=== PATIENT | male | born 1975 | race Caucasian/White ===

== ENCOUNTER → 2016-12-31 | Outpatient (CLI) | payer OTHER, MEDICAID ==
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
--- NOTE | 2016-12-31 19:49 | DX ---
Lumbar Spine, Two Views 1431 hours Indication: Back pain. Comparison: CT of the abdomen and pelvis dated August 07, 2014. Technique: Upright AP and lateral views. Findings: Large body habitus attenuates the x-ray beam. Impression: Asymmetric tilt of the pelvis, left iliac crest superior to the right iliac crest suggest s underlying limb length discrepancy. The vertebral body heights are well preserved. No compression d eformity. Disk heights are well preserved. No discernible pars defect. Impression: 1. No evidence of acute fracture. 2. No significant degenerative disk or facet arthropathy. 3. Query limb length discrepancy with the left leg longer than the right resulting in pelvic tilt.
== END ==
LOC: CIMAGING 14:20
PROVIDERS: ATTEND Family Medicine
DX: M25.572 Pain in left ankle and joints of left foot (principal); M54.9 Dorsalgia, unspecified
CPT/HCPCS: 72100-PO; 73610-PO

== ENCOUNTER 2017-01-13 15:27 | Emergency (ER) | payer OTHER, MEDICAID ==
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
[2017-01-13 15:38] VITALS: RESP 18; TEMP 98.2
[2017-01-13] MEDS ORDERED: oxyCODONE IR 5 MG TAB PO ONE (16:40)
[2017-01-13] MEDS ORDERED: oxyCODONE IR 5 MG TAB ONE (16:41)
[2017-01-13 16:44] VITALS: BP 115/73; PULSE 86; O2SAT 95
== END 2017-01-13 16:48 | disposition home or self-care (01) ==
LOC: EDUNIT#
DX: S09.90XA Unspecified injury of head, initial encounter (principal); J45.909 Unspecified asthma, uncomplicated; E11.9 Type 2 diabetes mellitus without complications; I10 Essential (primary) hypertension; Y04.0XXA Assault by unarmed brawl or fight, initial encounter

== ENCOUNTER 2017-01-14 15:38 | Inpatient (IN) | payer OTHER, MEDICAID ==
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
[2017-01-14] MEDS ORDERED: NS 1,000 ML IV ONE (16:08)
[2017-01-14] MEDS ORDERED: OLANZapine DISINTEGR 5 MG TAB PO ONE (16:08)
[2017-01-14 16:13] LABS: % IMMATURE GRANULYOCYTES 0.4 % (0.0-1.1); ABSOLUTE IMMATURE GRANULOCYTES 0.03 10^3/uL (0.00-0.10); ADD DIFF? NO; ADD MORPH? NO; ADD SCAN? NO; ATYPICAL LYMPHOCYTE FLAG 10 (0-99); FRAGMENT RBC FLAG 0 (0-99); HEMATOCRIT 46.6 % (40.0-51.0); HEMOGLOBIN 16.6 g/dL (13.7-17.5); LEFT SHIFT FLG 0 (0-99); LIPEMIA HEMOLYSIS FLAG 90 (0-99); MEAN CELL HEMOGLOBIN 35.3 pg (27.9-34.1); MEAN CELL HEMOGLOBIN CONCENTR. 35.6 g/dL (32.4-36.7); MEAN CELL VOLUME 99.1 fL (81.5-99.8); MEAN PLATELET VOLUME 11.2 fL (8.7-11.7); PLATELET CLUMPS FLAG 0 (0-99); PLATELET COUNT 209 10^3/uL (150-400); RED CELL DISTRIBUTION WIDTH 13.4 % (11.5-15.2)
[2017-01-14 16:20] LABS: ANION GAP 21 mEq/L (8-16); CALCIUM 10.2 mg/dL (8.5-10.4); CARBON DIOXIDE 19 mEq/l (22-31); CHLORIDE 109 mEq/L (97-110); CREATININE 1.2 mg/dL (0.7-1.3); ETHANOL SERUM 280 mg/dL (0-10); GLOMERULAR FILTRATION RATE > 60; GLUCOSE 150 mg/dL (70-100); POTASSIUM 3.8 mEq/L (3.5-5.2); SODIUM 149 mEq/L (134-144)
[2017-01-14] MEDS ORDERED: OLANZapine DISINTEGR 5 MG TAB ONE (16:41)
[2017-01-14] MEDS ORDERED: OLANZapine DISINTEGR 10 MG TAB PO ONE (17:41)
[2017-01-14] MEDS ORDERED: LORazepam 2 MG/ML INJ IVP ONE (17:41)
[2017-01-14 22:13] LABS: ETHANOL SERUM 146 mg/dL (0-10)
[2017-01-15] MEDS ORDERED: chlordiazePOXIDE 25 MG CAP PO ONE (03:00)
[2017-01-15] MEDS ORDERED: LORazepam 0.5 MG TAB PO PRN (10:26)
[2017-01-15] MEDS ORDERED: MAGNESIUM HYDROXIDE 30 ML UDCUP PO PRN ×2 (10:26→10:40)
[2017-01-15] MEDS ORDERED: NICOTINE POLACRILEX 2 MG GUM B PRN (10:26)
[2017-01-15] MEDS ORDERED: OLANZapine DISINTEGR 10 MG TAB PO PRN (10:26)
[2017-01-15] MEDS ORDERED: MAG HYDROX/AL HYDROX/SIMETH 30 ML UDCUP PO PRN ×2 (10:26→10:40)
[2017-01-15] MEDS ORDERED: OXYCODONE HCL 10 MG PO PRN (10:29)
[2017-01-15] MEDS ORDERED: ONDANSETRON DISINTEGRATING 4 MG TAB PO PRN (10:29)
[2017-01-15] MEDS ORDERED: ALBUTEROL 60 PUFFS/8 GM MDI IH PRN (10:29)
[2017-01-15] MEDS ORDERED: levETIRAcetam 500 MG TAB PO SCH (10:30)
[2017-01-15] MEDS ORDERED: TESTOSTERONE IM 100 MG/ML SYRINGE IM SCH (10:30)
[2017-01-15] MEDS ORDERED: THIAMINE HCL 100 MG TAB PO ONE (10:40)
[2017-01-15] MEDS ORDERED: chlordiazePOXIDE 25 MG CAP PO PRN (10:40)
[2017-01-15] MEDS ORDERED: IBUPROFEN 200 MG TAB PO PRN (10:40)
[2017-01-15] MEDS ORDERED: PROMETHAZINE HCL 25 MG TAB PO PRN (10:40)
[2017-01-15] MEDS ORDERED: PROMETHAZINE HCL 25 MG SUPPR PR PRN (10:40)
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
[2017-01-15] MEDS: oxyCODONE IR 5 MG TAB PO PRN ×2 (12:45→18:39)
[2017-01-15] MEDS: LEVOTHYROXINE 75 MCG TAB PO SCH (12:47)
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
[2017-01-15] MEDS: BECLOMETHASONE QVAR 80 MDI IH SCH ×2 (15:38→17:56)
[2017-01-15] MEDS: levETIRAcetam 250 MG TAB PO SCH (20:47)
[2017-01-15] MEDS: levETIRAcetam 500 MG TAB PO SCH (20:47)
[2017-01-15] MEDS: OLANZapine DISINTEGR 10 MG TAB PO SCH (20:47)
[2017-01-15] MEDS ORDERED: NON-FORMULARY NEW DRUG (Olanzapine [Zyprexa] 20 MG) PO SCH (21:00)
[2017-01-15] MEDS ORDERED: OLANZAPINE 30 MG PO SCH (21:00)
[2017-01-16] MEDS: LEVOTHYROXINE 75 MCG TAB PO SCH (05:51)
[2017-01-16] MEDS: BECLOMETHASONE QVAR 80 MDI IH SCH ×2 (06:00→17:56)
[2017-01-16] MEDS: THIAMINE HCL 100 MG TAB PO SCH (07:30)
[2017-01-16] MEDS: oxyCODONE IR 5 MG TAB PO PRN ×2 (07:30→17:00)
[2017-01-16] MEDS: levETIRAcetam 500 MG TAB PO SCH ×2 (07:30→20:08)
[2017-01-16] MEDS: levETIRAcetam 250 MG TAB PO SCH ×2 (07:30→20:08)
[2017-01-16] MEDS: MULTIVITAMINS 1 EACH TAB PO SCH (07:31)
[2017-01-16] MEDS: FOLIC ACID 1 MG TAB PO SCH (07:31)
--- NOTE | 2017-01-16 11:03 | SOAPPROG ---
SOAP Progress Note Assessment/Plan: Assessment: Pt is a 41 y/o male with a hx of Schizoaffective D/O and alcoholism who made Homicidal statements at the [facility]. Pt was put on an M1 for S/H I and also was put on CIWA's for alcohol withdrawal. Plan:con't Zyprexa 30mg QHS and 5mg prn D/C CIWA'S and order Ativan prn on an M1 but agrees to sign in vol D/C SP and allow pt to shave 01/16/17 11:27 Subjective: Pt is attending groups-still reporting vague HI "My head had pressure this morning. I need my Ativan." Objective: Vital Signs Temp Pulse Resp BP Pulse Ox 36.7 C 66 14 117/75 93 01/16/17 06:10 01/16/17 06:10 01/16/17 06:10 01/16/17 06:10 01/16/17 06:10 Pt is A+O x4 mood-depressed affect-constricted + chronic A/V H +HI vague this am but agrees to be safe and not hurt self or others denies S/I thoughts-logical no delusions speech-wnl slept 7.5 hours good appetite memory-fair conc-fair no ROSSY I/J-fair - Time Spent With Patient Time Spent With Patient: 25' - Pending Discharge Pending Discharge Within 24 Hours: No Pending Discharge Within 48 Hours: No ICD10 Worksheet Patient Problems: Problems Problem Status Onset Alcohol intoxication Acute Auditory hallucinations Acute Schizophrenia Acute Cellulitis Acute
[2017-01-16] MEDS: IBUPROFEN 200 MG TAB PO PRN ×2 (11:04→19:24)
[2017-01-16] MEDS: LORazepam 1 MG TAB PO PRN ×2 (11:37→19:24)
[2017-01-16] MEDS: OLANZapine DISINTEGR 5 MG TAB PO PRN ×2 (11:37→17:00)
[2017-01-16] MEDS: OLANZapine DISINTEGR 10 MG TAB PO SCH (20:08)
[2017-01-17] MEDS: LEVOTHYROXINE 75 MCG TAB PO SCH (06:11)
[2017-01-17] MEDS: BECLOMETHASONE QVAR 80 MDI IH SCH (06:12)
[2017-01-17 06:20] VITALS: BP 90/55; PULSE 65; RESP 16; TEMP 97.6; O2SAT 90
[2017-01-17] MEDS ORDERED: TESTOSTERONE IM 100 MG/ML SYRINGE IM SCH (09:00)
[2017-01-17] MEDS: MULTIVITAMINS 1 EACH TAB PO SCH (11:09)
[2017-01-17] MEDS: THIAMINE HCL 100 MG TAB PO SCH (11:09)
[2017-01-17] MEDS: levETIRAcetam 500 MG TAB PO SCH (11:09)
[2017-01-17] MEDS: FOLIC ACID 1 MG TAB PO SCH (11:09)
[2017-01-17] MEDS: levETIRAcetam 250 MG TAB PO SCH (11:09)
--- NOTE | 2017-01-17 11:15 | SOAPPROG ---
SOAP Progress Note Assessment/Plan: Assessment: Pt is a 41 y/o male with a hx of Schizoaffective D/O and alcoholism who made Homicidal statements at the [facility]. Pt was put on an M1 for S/H I and also was put on CIWA's for alcohol withdrawal. Plan:con't Zyprexa 30mg QHS and 5mg prn con't Ativan prn-pt states it is helping pt will sign in vol D/C SP and allow pt to shave tp get testosterone shot 01/17/17 01/17/17 11:11 Subjective: "I'm not feeling well. I'm getting my testosterone shot today." Objective: Vital Signs Temp Pulse Resp BP Pulse Ox 36.4 C 65 16 90/55 L 90 L 01/17/17 06:19 01/17/17 06:19 01/17/17 06:19 01/17/17 06:19 01/17/17 06:19 Pt is A+O x4 mood-depressed affect-appr thoughts-logical chronic A/V H no current S/H I sleep and appetite-improving speech-monotone no delusions no ROSSY memory-fair I/J-fair - Time Spent With Patient Time Spent With Patient: 20' - Pending Discharge Pending Discharge Within 24 Hours: No Pending Discharge Within 48 Hours: No ICD10 Worksheet Patient Problems: Problems Problem Status Onset Alcohol intoxication Acute Auditory hallucinations Acute Schizophrenia Acute Cellulitis Acute
[2017-01-17] MEDS: oxyCODONE IR 5 MG TAB PO PRN (12:27)
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
== END 2017-01-17 16:40 | disposition home or self-care (01) | DRG 885 ==
LOC: EDUNIT# → EDBD → BBEH 01-15 09:50
PROVIDERS: ADMIT Psychiatry & Neurology Psychiatry; ATTEND Psychiatry & Neurology Psychiatry
DX: F20.89 Other schizophrenia (principal); F10.120 Alcohol abuse with intoxication, uncomplicated; I10 Essential (primary) hypertension; E03.9 Hypothyroidism, unspecified; Z91.14 Patient's other noncompliance with medication regimen
CPT/HCPCS: 80305; 96374; G0480; J1071

== ENCOUNTER 2017-01-18 21:56 | Emergency (ER) | payer OTHER, MEDICAID ==
[2017-01-18 22:03] VITALS: RESP 20; TEMP 98.1
--- NOTE | 2017-01-18 22:32 | EDPHY ---
H & P Stated Complaint: ETOH Time Seen by Provider: 01/18/17 21:57 HPI/ROS: CHIEF COMPLAINT: Suspected alcohol intoxication HISTORY OF PRESENT ILLNESS: 41-year-old male guarding by ambulance police [facility] hold after he was found intoxicated, with group other individuals would also been drinking. There are no reports of trauma or fall. No reports of assault. No injury. Per the M1 report there were initial bystander statements of suicidality however the patient denied this on scene and he denies suicidality when I interview him. Denies homicidality. REVIEW OF SYSTEMS: A ten point review of systems was performed and is negative with the exception of the items mentioned in the HPI PAST MEDICAL & SURGICAL HISTORY: alcoholism SOCIAL HISTORY: Positive for witnessed alcohol use PHYSICAL EXAM (Prior to examination, patient consented to physical exam, hands were washed and my usual and customary physical exam procedures followed) 1) GENERAL: Well-developed, well-nourished, alert and oriented. Smells of alcohol . 2) HEAD: Normocephalic, atraumatic 3) HEENT: Pupils equal, round, reactive to light bilaterally. Sclera anicteric. no raccoon eyes no Cohen sign. No hemotympanum. No rhinorrhea. No otorrhea. 4) NECK: Full range of motion, no meningeal signs. 5) LUNGS: Clear auscultation bilaterally, no wheezes, no rhonchi, no retractions. 6) HEART: Regular rate and rhythm, no murmur, no heave, no gallop. 7) ABDOMEN: No guarding, no rebound, no focal tenderness, 8) MUSCULOSKELETAL: No peripheral edema or discoloration. 9) BACK: no obvious trauma, no visual or palpable abnormality. 10) SKIN: No rash, no petechiae. 11) Psychiatric: Patient is oriented X 3, there is no agitation. DIFFERENTIAL DIAGNOSIS: In no particular orderincluding but not limited to hypoglycemia, infectious process, electrolyte abnormality, head injury and intoxicants. - Personal History Tetanus Vaccine Date: 2010 - Medical/Surgical History Hx Asthma: Yes Hx Chronic Respiratory Disease: No Hx Diabetes: Yes Hx Cardiac Disease: No Hx Renal Disease: No Hx Cirrhosis: No Hx Alcoholism: Yes Hx HIV/AIDS: No Hx Splenectomy or Spleen Trauma: No Other PMH: SCHIZO,BIPOLAR,HTN, OSTEOPOROSIS, CELLULITIS, ASTHMA, PRE-DIABETIC, HYPOTHYROIDISM, TIBIA AND FIBULA FX. - Social History Smoking Status: Former smoker Constitutional: Initial Vital Signs Temperature (C) 36.7 C 01/18/17 22:01 Heart Rate 97 01/18/17 22:01 Respiratory Rate 20 01/18/17 22:01 Blood Pressure 102/81 H 01/18/17 22:01 O2 Sat (%) 90 L 01/18/17 22:01 O2 Delivery Mode Nasal Cannula O2 (L/minute) 3 Allergies/Adverse Reactions: acetaminophen [From Vicodin] Allergy (Severe, Verified 01/13/17 15:35) Hives, BREATHING PROBLEMS hydrocodone bitartrate [From Vicodin] Allergy (Severe, Verified 01/13/17 15:35) Hives, BREATHING PROBLEMS fluoxetine HCl [From Prozac] Allergy (Unknown, Verified 01/13/17 15:35) haloperidol [From Haldol] Allergy (Verified 01/13/17 15:35) haloperidol lactate [From Haldol] Allergy (Verified 01/13/17 15:35) Home Medications: Medication Instructions Recorded Testosterone IM [Testosterone 200 mg IM Q14D 10/05/16 100mg/ml IM inj (*)] Albuterol [Proventil Inhaler HFA 1 - 2 puffs IH Q4H PRN 01/15/17 (*)] Beclomethasone Qvar 80 [Qvar 80 2 puffs IH BIDI 01/15/17 (*)] Levothyroxine [Synthroid 75 mcg 75 mcg PO DAILY06 #30 tab 01/17/17 (*)] Multivitamins [Multivitamin (*)] 1 each PO DAILY #0 tab 01/17/17 OLANZapine DISINTEGR [ZyPREXA 30 mg PO HS #30 tab 01/17/17 ZYDIS (*)] Olanzapine [Zyprexa] 20 mg PO HS #30 tablet 01/17/17 levETIRAcetam [Keppra 250 mg (*)] 250 mg PO BID #30 tab 01/17/17 levETIRAcetam [Keppra 500 mg (*)] 750 mg PO BID #30 tab 01/17/17 Medical Decision Making ED Course/Re-evaluation: Re-evaluation with serial exams. No evidence of trauma. Not think that imaging studies currently indicated. He does have positive alcohol level. Doubt delirium tremens. At most recent exam at 12:01 a.m. he is ambulating without assistance, alert oriented person place time events, answering questions appropriately. He plan will be discharged [facility] with a Librium prepack. - Data Points Laboratory Results: 01/18/17 22:43 Ethyl Alcohol 372 mg/dL H mg/dL (0-10) Departure - Departure Disposition: Home, Routine, Self-Care Clinical Impression: Alcohol intoxication Qualifiers: Complication of substance-induced condition: uncomplicated Qualified Code(s): F10.120 - Alcohol abuse with intoxication, uncomplicated Condition: Good Instructions: Chlordiazepoxide (By mouth), Alcohol Intoxication (ED) Referrals: [facility] [Outside] - As per Instructions
[2017-01-18] MEDS ORDERED: CHLORDIAZEPOXIDE 25MG PREPK#6 BTL TAKEHOME ONE (22:48)
[2017-01-18 23:14] LABS: ETHANOL SERUM 372 mg/dL (0-10)
[2017-01-19 00:44] VITALS: BP 111/86; PULSE 94; O2SAT 98
== END 2017-01-19 00:43 | disposition home or self-care (01) ==
LOC: EDUNIT#
DX: F10.120 Alcohol abuse with intoxication, uncomplicated (principal); I10 Essential (primary) hypertension; J45.909 Unspecified asthma, uncomplicated; Z87.891 Personal history of nicotine dependence
CPT/HCPCS: G0480

== ENCOUNTER 2017-01-19 18:37 | Inpatient (IN) | payer OTHER, MEDICAID ==
[2017-01-19] MEDS ORDERED: FOLIC ACID 1 MG TAB PO ONE (19:05)
[2017-01-19] MEDS ORDERED: LORazepam 1 MG TAB PO ONE (19:05)
[2017-01-19] MEDS ORDERED: THIAMINE HCL 100 MG TAB PO ONE (19:05)
[2017-01-19] MEDS ORDERED: MULTIVITAMINS 1 EACH TAB PO ONE (19:05)
--- NOTE | 2017-01-19 19:05 | EDPHY ---
H & P Stated Complaint: suicidal, hearing voices, no concrete plan -recent dc royal same Time Seen by Provider: 01/19/17 18:52 HPI/ROS: CHIEF COMPLAINT: M1 suicidal HISTORY OF PRESENT ILLNESS: 41-year-old homeless male history of alcoholism, seen in the ER last evening for acute alcohol intoxication, in the ER via police after endorsing suicidal ideation with plan to lacerate his wrists, also endorsing auditory hallucination. No seizure. PRIMARY CARE PROVIDER: REVIEW OF SYSTEMS: A ten point review of systems was performed and is negative with the exception of the items mentioned in the HPI PAST MEDICAL & SURGICAL HISTORY: history of alcoholism SOCIAL HISTORY: homeless. PHYSICAL EXAM (Prior to examination, patient consented to physical exam, hands were washed and my usual and customary physical exam procedures followed) 1) GENERAL: Well-developed, well-nourished, alert and oriented. Appears to be in no acute distress. 2) HEAD: Normocephalic, atraumatic 3) HEENT: Pupils equal, round, reactive to light bilaterally. Sclera anicteric. 4) NECK: Full range of motion, no meningeal signs. 5) LUNGS: Clear auscultation bilaterally, no wheezes, no rhonchi, no retractions. 6) HEART: Regular rate and rhythm, no murmur, no heave, no gallop. 7) ABDOMEN: No guarding, no rebound, no focal tenderness, negative McBurney's, negative Saeed's, negative Rovsing's, negative peritoneal sign, 8) MUSCULOSKELETAL: Moving all extremities, no focal areas of tenderness, no obvious trauma. No peripheral edema or discoloration. 9) BACK: No CVA tenderness, no midline vertebral tenderness, no fluctuance, no step-off, no obvious trauma, no visual or palpable abnormality. 10) SKIN: No rash, no petechiae. 11) Psychiatric: Patient is oriented X 3, there is no agitation. He is answering questions appropriately. He does seem to have pressured speech. Does not appear to be in responding to internal stimuli DIFFERENTIAL DIAGNOSIS: in no particular include but limited to suicidal ideation, homicidal ideation, delirium tremens, encephalopathy - Personal History Current Tetanus/Diphtheria Vaccine: Unsure Current Tetanus Diphtheria and Acellular Pertussis (TDAP): Unsure Tetanus Vaccine Date: 2010 - Medical/Surgical History Hx Asthma: Yes Hx Chronic Respiratory Disease: No Hx Diabetes: Yes Hx Cardiac Disease: No Hx Renal Disease: No Hx Cirrhosis: No Hx Alcoholism: Yes Hx HIV/AIDS: No Hx Splenectomy or Spleen Trauma: No Other PMH: SCHIZO,BIPOLAR,HTN, OSTEOPOROSIS, CELLULITIS, ASTHMA, PRE-DIABETIC, HYPOTHYROIDISM, TIBIA AND FIBULA FX. - Social History Smoking Status: Former smoker Constitutional: Initial Vital Signs Temperature (C) 37.0 C 01/19/17 18:47 Heart Rate 78 01/19/17 18:47 Respiratory Rate 16 01/19/17 18:47 Blood Pressure 142/96 H 01/19/17 18:47 O2 Sat (%) 97 01/19/17 18:47 O2 Delivery Mode Room Air Allergies/Adverse Reactions: acetaminophen [From Vicodin] Allergy (Severe, Verified 01/20/17 01:03) Hives, BREATHING PROBLEMS hydrocodone bitartrate [From Vicodin] Allergy (Severe, Verified 01/20/17 01:03) Hives, BREATHING PROBLEMS fluoxetine HCl [From Prozac] Allergy (Unknown, Verified 01/20/17 01:03) haloperidol [From Haldol] Allergy (Verified 01/20/17 01:03) haloperidol lactate [From Haldol] Allergy (Verified 01/20/17 01:03) Home Medications: Medication Instructions Recorded Testosterone IM [Testosterone 200 mg IM Q14D 10/05/16 100mg/ml IM inj (*)] Albuterol [Proventil Inhaler HFA 1 - 2 puffs IH Q4H PRN 01/15/17 (*)] Beclomethasone Qvar 80 [Qvar 80 2 puffs IH BIDI 01/15/17 (*)] Levothyroxine [Synthroid 75 mcg 75 mcg PO DAILY06 #30 tab 01/17/17 (*)] Multivitamins [Multivitamin (*)] 1 each PO DAILY #0 tab 01/17/17 OLANZapine DISINTEGR [ZyPREXA 30 mg PO HS #30 tab 01/17/17 ZYDIS (*)] Olanzapine [Zyprexa] 20 mg PO HS #30 tablet 01/17/17 levETIRAcetam [Keppra 250 mg (*)] 250 mg PO BID #30 tab 01/17/17 levETIRAcetam [Keppra 500 mg (*)] 750 mg PO BID #30 tab 01/17/17 Medical Decision Making ED Course/Re-evaluation: 7:04 p.m.: I am familiar with this patient. I reviewed his old medical records. Does have a history of alcoholism. I think that delirium tremens is less than likely at this time. He is answering questions appropriately, does admit to intermittent auditory hallucination, however no altered mentation. He is already on M1 hold for suicidal ideation. 7:44 p.m.: Patient requests his evening dose of Keppra 750 mg p.o. 2:00 a.m.: Mental health motor equipment commanding officer will be looking for placement. Care turned over to DR Silva - Data Points Laboratory Results: Laboratory Results 01/19/17 19:12 01/19/17 19:12 01/19/17 01/19/17 01/19/17 19:12 19:12 19:00 WBC 6.69 10^3/uL 10^3/uL (3.80-9.50) RBC 4.64 10^6/uL 10^6/uL (4.40-6.38) Hgb 16.1 g/dL g/dL (13.7-17.5) Hct 47.3 % % (40.0-51.0) MCV 101.9 fL H fL (81.5-99.8) MCH 34.7 pg H pg (27.9-34.1) MCHC 34.0 g/dL g/dL (32.4-36.7) RDW 13.2 % % (11.5-15.2) Plt Count 179 10^3/uL 10^3/uL (150-400) MPV 11.1 fL fL (8.7-11.7) Neut % (Auto) 54.9 % % (39.3-74.2) Lymph % (Auto) 36.2 % % (15.0-45.0) [place] % (Auto) 7.6 % % (4.5-13.0) Eos % (Auto) 0.9 % % (0.6-7.6) Baso % (Auto) 0.3 % % (0.3-1.7) Nucleat RBC Rel Count 0.0 % % (0.0-0.2) Absolute Neuts (auto) 3.67 10^3/uL 10^3/uL (1.70-6.50) Absolute Lymphs (auto) 2.42 10^3/uL 10^3/uL (1.00-3.00) Absolute Monos (auto) 0.51 10^3/uL 10^3/uL (0.30-0.80) Absolute Eos (auto) 0.06 10^3/uL 10^3/uL (0.03-0.40) Absolute Basos (auto) 0.02 10^3/uL 10^3/uL (0.02-0.10) Absolute Nucleated RBC 0.00 10^3/uL 10^3/uL (0-0.01) Immature Gran % 0.1 % % (0.0-1.1) Immature Gran # 0.01 10^3/uL 10^3/uL (0.00-0.10) Sodium 142 mEq/L mEq/L (134-144) Potassium 4.2 mEq/L mEq/L (3.5-5.2) Chloride 99 mEq/L mEq/L (97-110) Carbon Dioxide 28 mEq/l mEq/l (22-31) Anion Gap 15 mEq/L mEq/L (8-16) BUN 14 mg/dL mg/dL (7-23) Creatinine 1.3 mg/dL mg/dL (0.7-1.3) Estimated GFR > 60 Glucose 86 mg/dL mg/dL (70-100) Calcium 9.7 mg/dL mg/dL (8.5-10.4) Ammonia 19.0 uMOL/L uMOL/L (9.0-30.0) Salicylates < 1.0 mg/dL L mg/dL (2.0-20.0) Urine Opiates Screen Acetaminophen < 10 mcg/mL L mcg/mL (10.0-30.0) Urine Barbiturates Ur Phencyclidine Scrn Ur Amphetamine Screen U Benzodiazepines Scrn Urine Cocaine Screen U Marijuana (THC) Screen Ethyl Alcohol < 10 mg/dL mg/dL (0-10) 01/19/17 19:00 WBC RBC Hgb Hct MCV MCH MCHC RDW Plt Count MPV Neut % (Auto) Lymph % (Auto) [place] % (Auto) Eos % (Auto) Baso % (Auto) Nucleat RBC Rel Count Absolute Neuts (auto) Absolute Lymphs (auto) Absolute Monos (auto) Absolute Eos (auto) Absolute Basos (auto) Absolute Nucleated RBC Immature Gran % Immature Gran # Sodium Potassium Chloride Carbon Dioxide Anion Gap BUN Creatinine Estimated GFR Glucose Calcium Ammonia Salicylates Urine Opiates Screen NEGATIVE (NEGATIVE) Acetaminophen Urine Barbiturates NEGATIVE (NEGATIVE) Ur Phencyclidine Scrn NEGATIVE (NEGATIVE) Ur Amphetamine Screen NEGATIVE (NEGATIVE) U Benzodiazepines Scrn NON-NEGATIVE H (NEGATIVE) Urine Cocaine Screen NEGATIVE (NEGATIVE) U Marijuana (THC) Screen NON-NEGATIVE H (NEGATIVE) Ethyl Alcohol Medications Given: Discontinued Medications Folic Acid (Folic Acid) 1 mg PO EDNOW ONE Stop: 01/19/17 19:06 Last Admin: 01/19/17 19:19 Dose: 1 mg Levetiracetam (Keppra) 750 mg PO EDNOW ONE Stop: 01/19/17 19:44 Last Admin: 01/19/17 19:55 Dose: 750 mg Lorazepam (Ativan) 1 mg PO EDNOW ONE Stop: 01/19/17 19:06 Last Admin: 01/19/17 19:19 Dose: 1 mg Multivitamins (Tab-A-Harjinder) 1 each PO EDNOW ONE Stop: 01/19/17 19:06 Last Admin: 01/19/17 19:19 Dose: 1 each Olanzapine (Zyprexa Zydis) 30 mg PO EDNOW ONE Stop: 01/20/17 00:31 Last Admin: 01/20/17 00:57 Dose: 30 mg Thiamine HCl (Vitamin B-1) 100 mg PO EDNOW ONE Stop: 01/19/17 19:06 Last Admin: 01/19/17 19:19 Dose: 100 mg Departure - Departure Disposition: Other Psych, Not [facility] Clinical Impression: Suicidal ideation Condition: Fair Referrals: Delvis Gibson DO [Primary Care Provider] - As per Instructions
[2017-01-19 19:25] LABS: % IMMATURE GRANULYOCYTES 0.1 % (0.0-1.1); ABSOLUTE IMMATURE GRANULOCYTES 0.01 10^3/uL (0.00-0.10); ADD DIFF? NO; ADD MORPH? NO; ADD SCAN? NO; ATYPICAL LYMPHOCYTE FLAG 10 (0-99); FRAGMENT RBC FLAG 0 (0-99); HEMATOCRIT 47.3 % (40.0-51.0); HEMOGLOBIN 16.1 g/dL (13.7-17.5); LEFT SHIFT FLG 0 (0-99); LIPEMIA HEMOLYSIS FLAG 90 (0-99); MEAN CELL HEMOGLOBIN 34.7 pg (27.9-34.1); MEAN CELL VOLUME 101.9 fL (81.5-99.8); MEAN PLATELET VOLUME 11.1 fL (8.7-11.7); PLATELET CLUMPS FLAG 0 (0-99); PLATELET COUNT 179 10^3/uL (150-400); RED BLOOD CELL COUNT 4.64 10^6/uL (4.40-6.38); RED CELL DISTRIBUTION WIDTH 13.2 % (11.5-15.2)
[2017-01-19 19:38] LABS: ANION GAP 15 mEq/L (8-16); CALCIUM 9.7 mg/dL (8.5-10.4); CARBON DIOXIDE 28 mEq/l (22-31); CHLORIDE 99 mEq/L (97-110); CREATININE 1.3 mg/dL (0.7-1.3); ETHANOL SERUM < 10 mg/dL (0-10); GLOMERULAR FILTRATION RATE > 60; GLUCOSE 86 mg/dL (70-100); POTASSIUM 4.2 mEq/L (3.5-5.2); SALICYLATE < 1.0 mg/dL (2.0-20.0); SODIUM 142 mEq/L (134-144)
[2017-01-19] MEDS ORDERED: levETIRAcetam 500 MG TAB PO ONE (19:43)
[2017-01-20] MEDS ORDERED: OLANZapine DISINTEGR 10 MG TAB PO ONE (00:30)
[2017-01-20] MEDS ORDERED: ACETAMINOPHEN 325 MG TAB PO PRN (17:45)
[2017-01-20] MEDS ORDERED: MAG HYDROX/AL HYDROX/SIMETH 30 ML UDCUP PO PRN (17:45)
[2017-01-20] MEDS ORDERED: NICOTINE POLACRILEX 2 MG GUM B PRN (17:45)
[2017-01-20] MEDS ORDERED: MAGNESIUM HYDROXIDE 30 ML UDCUP PO PRN (17:45)
[2017-01-20] MEDS ORDERED: BECLOMETHASONE QVAR 80 MDI IH PRN (17:47)
[2017-01-20] MEDS: LORazepam 0.5 MG TAB PO PRN (18:55)
[2017-01-20] MEDS: NAPROXEN SODIUM 220 MG TAB PO PRN (19:06)
[2017-01-20] MEDS: levETIRAcetam 250 MG TAB PO SCH (21:24)
[2017-01-20] MEDS: OLANZapine 10 MG TAB PO SCH (21:25)
[2017-01-21] MEDS ORDERED: LEVOTHYROXINE 75 MCG TAB PO SCH (06:00)
[2017-01-21] MEDS: levETIRAcetam 250 MG TAB PO SCH ×2 (09:54→21:00)
[2017-01-21] MEDS: NAPROXEN SODIUM 220 MG TAB PO PRN ×2 (09:59→21:00)
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
[2017-01-21] MEDS: LORazepam 0.5 MG TAB PO PRN ×2 (11:56→21:00)
[2017-01-21] MEDS: OLANZapine DISINTEGR 10 MG TAB PO PRN (16:07)
[2017-01-21] MEDS: OLANZapine 10 MG TAB PO SCH (21:00)
[2017-01-22] MEDS: LEVOTHYROXINE 75 MCG TAB PO SCH (09:32)
[2017-01-22] MEDS: levETIRAcetam 250 MG TAB PO SCH ×2 (09:32→21:01)
[2017-01-22] MEDS: LORazepam 0.5 MG TAB PO PRN ×2 (10:23→21:02)
--- NOTE | 2017-01-22 10:44 | SOAPPROG ---
CHRISTINA Progress Note Assessment/Plan: Assessment: Pt is a 41 y/o S from [facility] who has a long hx of Alcoholism and Schizophrenia who left last week and then ended up at the [facility] and then shelter for disorderly conduct and then said he was suicidal at the shelter and admitted to taking an OD of Ativan. Pt is requesting to leave so he can go drink. He states he needs to get back on medicaid. Plan:Pt will be placed on a STC con't Zyprexa 30mg QHS 01/22/17 10:38 Subjective: "I want to leave and go drink. I need pain pills." C/O pain in back, ankle, knee and "ulcers in my intestine." Objective: Vital Signs Temp Pulse Resp BP Pulse Ox 36.8 C 66 12 99/60 L 90 L 01/22/17 06:00 01/22/17 06:00 01/22/17 06:00 01/22/17 06:00 01/22/17 06:00 Pt is A+O x4 mood-depressed affect-constricted +SI but contracts for safety no HI sleep 9 hours appetite-wnl thoughts-logical energy level-fair conc-fair memory-intact no ROSSY no delusions I/J-limited - Time Spent With Patient Time Spent With Patient: 30' - Pending Discharge Pending Discharge Within 24 Hours: No Pending Discharge Within 48 Hours: No ICD10 Worksheet Patient Problems: Problems Problem Status Onset Suicidal ideation Acute Alcohol intoxication Acute Auditory hallucinations Acute Cellulitis Acute Schizophrenia Acute
[2017-01-22] MEDS: OLANZapine 10 MG TAB PO SCH (21:02)
[2017-01-22] MEDS: OLANZapine DISINTEGR 10 MG TAB PO PRN (22:30)
[2017-01-23] MEDS: LEVOTHYROXINE 75 MCG TAB PO SCH (09:01)
[2017-01-23] MEDS: levETIRAcetam 250 MG TAB PO SCH ×2 (09:01→21:46)
[2017-01-23] MEDS: IBUPROFEN 800 MG TAB PO PRN (19:37)
[2017-01-23] MEDS: LORazepam 0.5 MG TAB PO PRN (21:46)
[2017-01-23] MEDS: OLANZapine 10 MG TAB PO SCH (21:46)
[2017-01-23] MEDS: OLANZapine DISINTEGR 10 MG TAB PO PRN (22:14)
--- NOTE | 2017-01-24 07:51 | SOAPPROG ---
SOAP Progress Note Assessment/Plan: Assessment: Plan: 01/24/17 07:50 Ambivalent re: treatment and sobriety but able to make good decisions today. WIll CCM. Subjective: Pt seen, discussed with staff. Reports wanting to leave the hospital. States he needs to go to his apartment and to the Medicaid office. He later retracts this stating he knows he would just drink and end up being suicidal again. States he wants to stay "long enough to feel better." Compliant with meds, no withdrawal. Objective: Vital Signs Temp Pulse Resp BP Pulse Ox 36.7 C 68 14 104/58 L 93 01/24/17 06:15 01/24/17 06:15 01/24/17 06:15 01/24/17 06:15 01/24/17 06:15 MSE: Calm, coop, somewhat guarded. Affect is blunted, stable. Mood is "OK." TP linear. TC reveals no overt psychosis. Denies current SI. - Time Spent With Patient Time Spent With Patient: 25" ICD10 Worksheet Patient Problems: Problems Problem Status Onset Suicidal ideation Acute Alcohol intoxication Acute Auditory hallucinations Acute Cellulitis Acute Schizophrenia Acute
[2017-01-24] MEDS: levETIRAcetam 250 MG TAB PO SCH ×2 (09:00→21:08)
[2017-01-24] MEDS: LEVOTHYROXINE 75 MCG TAB PO SCH (09:00)
[2017-01-24] MEDS: LORazepam 0.5 MG TAB PO PRN ×2 (13:08→21:08)
[2017-01-24] MEDS: IBUPROFEN 800 MG TAB PO PRN (13:34)
--- NOTE | 2017-01-24 15:52 | SOAPPROG ---
SOAP Progress Note Assessment/Plan: Assessment: Plan: 01/24/17 07:50 Ambivalent re: treatment and sobriety but able to make good decisions today. WIll CCM. 01/24/17 15:51 More focused on substance abuse treatment in light of possibility of going to [place]. Will CCM, monitor. Subjective: Pt seen, discussed with staff. Agitated, complaining to other patients that "this place sucks. All they want to do is send everyone to [facility]." When asked about this he states the informed him he was placed on the [place] list by [facility]. He states he wants to go to [facility] for "detox." He states his mental illness is stable and he needs to focus on his addiction. Objective: Vital Signs Temp Pulse Resp BP Pulse Ox 36.7 C 68 14 104/58 L 93 01/24/17 06:15 01/24/17 06:15 01/24/17 06:15 01/24/17 06:15 01/24/17 06:15 MSE: Agitated, angry. Affect is otherwise blunted, stable. Mood is "bad." TP linear. TC reveals no active psychosis. Denies SI. - Time Spent With Patient Time Spent With Patient: 15" ICD10 Worksheet Patient Problems: Problems Problem Status Onset Suicidal ideation Acute Alcohol intoxication Acute Auditory hallucinations Acute Cellulitis Acute Schizophrenia Acute
[2017-01-24] MEDS: OLANZapine 10 MG TAB PO SCH (21:08)
[2017-01-25] MEDS: levETIRAcetam 250 MG TAB PO SCH ×2 (08:19→20:12)
[2017-01-25] MEDS: LEVOTHYROXINE 75 MCG TAB PO SCH (08:19)
[2017-01-25] MEDS: LORazepam 0.5 MG TAB PO PRN (18:17)
[2017-01-25] MEDS: OLANZapine 10 MG TAB PO SCH (20:12)
--- NOTE | 2017-01-25 22:26 | SOAPPROG ---
SOAP Progress Note Assessment/Plan: Assessment: Plan: 01/24/17 07:50 Ambivalent re: treatment and sobriety but able to make good decisions today. WIll CCM. 01/24/17 15:51 More focused on substance abuse treatment in light of possibility of going to [place]. Will CCM, monitor. 01/25/17 22:24 No change. CCM Subjective: Patient seen, discussed with staff. He is in bed stating he is unusually tired. Later witnessed to participtate in group. Remains reclusive, guarded. No behaviors issues. Compliant with meds. Objective: Vital Signs Temp Pulse Resp BP Pulse Ox 36.6 C 66 14 102/56 L 93 01/25/17 06:00 01/25/17 06:00 01/25/17 06:00 01/25/17 06:00 01/25/17 06:00 MSE: Calm, coop. Affect is blunted, stable. Mood is "pretty bad." TP linear. TC reveals no active psychosis. Continues to voice SI. - Time Spent With Patient Time Spent With Patient: 15" - Pending Discharge Pending Discharge Within 24 Hours: No Pending Discharge Within 48 Hours: No ICD10 Worksheet Patient Problems: Problems Problem Status Onset Suicidal ideation Acute Alcohol intoxication Acute Auditory hallucinations Acute Cellulitis Acute Schizophrenia Acute
[2017-01-26] MEDS: LEVOTHYROXINE 75 MCG TAB PO SCH (09:38)
[2017-01-26] MEDS: levETIRAcetam 250 MG TAB PO SCH ×2 (09:38→21:15)
[2017-01-26] MEDS: LORazepam 0.5 MG TAB PO PRN ×2 (17:25→23:35)
[2017-01-26] MEDS: OLANZapine 10 MG TAB PO SCH (21:16)
--- NOTE | 2017-01-26 23:14 | SOAPPROG ---
SOAP Progress Note Assessment/Plan: Assessment: 41yo disabled adopted single male with long hx of SZP and severe EtOH use d/o, admitted after reporting SI in long-term to hang self. Has been unable to maintain med compliance for his SZP due to relapse EtOH during which he becomes again suicidal and threatening/aggressive. States EtOH decr AH and depr, b/c otherwise voices are constant and he experiences more depr and anxiety. Unable to maintain voluntarily in any setting due to severity of his illness. Now on STC 01/26/17 23:12 denies med s/e. denies current SI/HI or any AH/VH. states zyprexa helps, but wants more . ready to leave hospital. admits EtOH cravings daily. doesn't want Antabuse b/c "bad liver" concerns, and doesn't trust self to not drink on it. asks for Ativan 2mg, "because I'll get it from my doctor when I leave here anyway" Chronic L knee pain Never tried vistail prn on ST, has AG MSE: calm, cooperative, nml speech, some incr rate as lists requests, mood depressed , affect dysphoric and mildly anxious, thoughts goal-directed but demonstrating poor insight, +AH less now with meds, no current SI, o HI. i/j both impaired. seems with poor motivation to, or lack of insight into own lack of ability to maintain sobriety with ease. wants ativan despite educated on concerns, not interested in revisiting CPAP issue despite explanation of VLADISLAV risks. seems concrete. Plan: wants more prn zyprexa for anxiety or ativan. +craving EtOH try prn hydroxyzine 25-50mg states he has VLADISLAV w/CPAP at home but noncompliant and not interested in trying to use despite educated on health risks. uncomfortable. consider nocturnal pOx for screening. unsure when CPAP had been Rxd and how long or severe is untreated VLADISLAV which won't help his depr consider ST for cognitive assessment and OT for safety whitney AG, [facility]. Assures no risk to run despite not wanting to be in hosp Objective: Vital Signs Temp Pulse Resp BP Pulse Ox 36.6 C 67 14 98/56 L 91 L 01/26/17 06:17 01/26/17 06:17 01/26/17 06:17 01/26/17 06:17 01/26/17 06:17 - Time Spent With Patient Time Spent With Patient: 40 min - Pending Discharge Pending Discharge Within 24 Hours: No Pending Discharge Within 48 Hours: No ICD10 Worksheet Patient Problems: Problems Problem Status Onset Suicidal ideation Acute Alcohol intoxication Acute Auditory hallucinations Acute Cellulitis Acute Schizophrenia Acute
[2017-01-27] MEDS: levETIRAcetam 250 MG TAB PO SCH ×2 (09:45→21:15)
[2017-01-27] MEDS: LEVOTHYROXINE 75 MCG TAB PO SCH (09:45)
[2017-01-27] MEDS: hydrOXYzine HCL 25 MG TAB PO PRN ×2 (13:52→22:19)
[2017-01-27] MEDS: LORazepam 0.5 MG TAB PO PRN (17:52)
[2017-01-27] MEDS: OLANZapine 10 MG TAB PO SCH (21:13)
--- NOTE | 2017-01-27 22:50 | SOAPPROG ---
SOAP Progress Note Assessment/Plan: Assessment: 41yo disabled adopted single male with long hx of SZP and severe EtOH use d/o, admitted after reporting SI in [facility] to hang self. Has been unable to maintain med compliance for his SZP due to relapse EtOH during which he becomes again suicidal and threatening/aggressive. States EtOH decr AH and depr, b/c otherwise voices are constant and he experiences more depr and anxiety. Unable to maintain voluntarily in any setting due to severity of his illness. Now on STC 01/26/17 23:12 denies med s/e. denies current SI/HI or any AH/VH. states zyprexa helps, but wants more . ready to leave hospital. admits EtOH cravings daily. doesn't want Antabuse b/c "bad liver" concerns, and doesn't trust self to not drink on it. asks for Ativan 2mg, "because I'll get it from my doctor when I leave here anyway" Chronic L knee pain Never tried vistail prn on ST, has AG MSE: calm, cooperative, nml speech, some incr rate as lists requests, mood depressed , affect dysphoric and mildly anxious, thoughts goal-directed but demonstrating poor insight, +AH less now with meds, no current SI, o HI. i/j both impaired. seems with poor motivation to, or lack of insight into own lack of ability to maintain sobriety with ease. wants ativan despite educated on concerns, not interested in revisiting CPAP issue despite explanation of VLADISLAV risks. seems concrete. Plan: wants more prn zyprexa for anxiety or ativan. +craving EtOH try prn hydroxyzine 25-50mg states he has VLADISLAV w/CPAP at home but noncompliant and not interested in trying to use despite educated on health risks. uncomfortable. consider nocturnal pOx for screening. unsure when CPAP had been Rxd and how long or severe is untreated VLADISLAV which won't help his depr consider ST for cognitive assessment and OT for safety whitney AG, [facility]. Assures no risk to run despite not wanting to be in hosp 01/27/17 16:33 slept 6.5hr no new concerns. doesn't feel rested with sleep, but zyprexa helps. denies med s /e. did try prn hydroxyzine, felt it was helping with anxiety. perseverative on wanting to leave, but unable to give a good d/c plan and admits he is craving EtOH. Pt cancelled visit from father b/c "tired" casually dressed, nml speech rate/vol, somewhat anxious hoping for d/c, thoughts perseverative, mood depressed and admits to craving, affect dysphoric and mildly anxious. cognition intact but i/j both impaired. still with occ AH but less w/meds, no current SI or other psychotic sxs PLAN: on STC. still AG privs, states he will comply cont current meds and as above Objective: Vital Signs Temp Pulse Resp BP Pulse Ox 36.5 C 87 14 122/77 H 92 01/27/17 00:20 01/27/17 00:20 01/27/17 00:20 01/27/17 00:20 01/27/17 00:20 - Time Spent With Patient Time Spent With Patient: 35min - Pending Discharge Pending Discharge Within 24 Hours: No Pending Discharge Within 48 Hours: No ICD10 Worksheet Patient Problems: Problems Problem Status Onset Suicidal ideation Acute Alcohol intoxication Acute Auditory hallucinations Acute Cellulitis Acute Schizophrenia Acute
[2017-01-28] MEDS: levETIRAcetam 250 MG TAB PO SCH ×2 (08:39→20:00)
[2017-01-28] MEDS: LEVOTHYROXINE 75 MCG TAB PO SCH (11:54)
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
[2017-01-28] MEDS ORDERED: hydrOXYzine HCL 10 MG TAB PO PRN (13:55)
[2017-01-28] MEDS ORDERED: GABAPENTIN 100 MG CAP PO PRN (13:57)
[2017-01-28] MEDS: OLANZapine 10 MG TAB PO SCH (20:59)
[2017-01-29 03:19] LABS: ALANINE AMINOTRANSFERASE 207 IU/L (21-72); ALBUMIN 4.7 g/dL (3.5-5.0); ALKALINE PHOSPHATASE 69 IU/L (38-126); ASPARTATE AMINOTRANSFERASE 108 IU/L (17-59); BILIRUBIN,TOTAL 0.9 mg/dL (0.1-1.4); BILIRUBIN-CONJUGATED 0.4 mg/dL (0.0-0.5); BILIRUBIN-UNCONJUGATED 0.5 mg/dL (0.0-1.1); TOTAL PROTEIN 8.9 g/dL (6.3-8.2)
[2017-01-29 06:11] VITALS: RESP 12; TEMP 97.7
[2017-01-29] MEDS: levETIRAcetam 250 MG TAB PO SCH ×2 (08:18→20:50)
[2017-01-29] MEDS: LEVOTHYROXINE 75 MCG TAB PO SCH (08:20)
[2017-01-29] MEDS: ESCITALOPRAM OXALATE 10 MG TAB PO SCH (11:51)
[2017-01-29] MEDS: LORazepam 0.5 MG TAB PO PRN (14:27)
[2017-01-29] MEDS ORDERED: BECLOMETHASONE QVAR 80 MDI IH PRN (15:55)
--- NOTE | 2017-01-29 17:39 | SOAPPROG ---
SOAP Progress Note Assessment/Plan: Assessment: Plan: 01/24/17 07:50 Ambivalent re: treatment and sobriety but able to make good decisions today. WIll CCM. 01/24/17 15:51 More focused on substance abuse treatment in light of possibility of going to [place]. Will [facility], monitor. 01/25/17 22:24 No change. [facility] 01/29/17 17:40 Remains ambivalent. The presentation of the depressive sx's at this point in his hospitalization as he is preparing to d/c is suspect. I am willing to address it but question whether he will choose to stay on the medication. It is unusual that he would have such an exaggerated negative response to gabapentin so we will monitor closely. Subjective: Pt seen, discussed with staff. Reports feeling "pretty messed up." He states his GF came to visit and told him he only drinks because he is depressed. He discussed this with Dr. Holland who notes significant social anxiety that could be influencing ETOH issues. I discussed potential treatments with pt and he is agreeable to a trial of Lexapro despite previous bad experiences with Prozac and Paxil. The risks, benefits and alternatives of this are reviewed. I was notified later that pt has requested a hearing to challenge his STC. He states the gabapentin "was the worst thing I ever took." He states "it knocked me out and then I was really depressed when it wore off." Objective: Vital Signs Temp Pulse Resp BP Pulse Ox 36.5 C 64 12 100/60 94 01/29/17 06:00 01/29/17 06:00 01/29/17 06:00 01/29/17 06:00 01/29/17 06:00 MSE: Calm, coop. Affect is constricted, stable, appropriate. Mood is "depressed." TP linear. TC reveals no active psychosis. Pt's report of SI varies greatly during the day and in regards to whom he is speaking. He reports none to me right now. - Time Spent With Patient Time Spent With Patient: 25" ICD10 Worksheet Patient Problems: Problems Problem Status Onset Suicidal ideation Acute Alcohol intoxication Acute Auditory hallucinations Acute Cellulitis Acute Schizophrenia Acute
[2017-01-29] MEDS: OLANZapine 10 MG TAB PO SCH (20:51)
[2017-01-30 06:11] VITALS: BP 102/57; PULSE 62; O2SAT 92
[2017-01-30] MEDS: levETIRAcetam 250 MG TAB PO SCH ×2 (08:55→20:07)
[2017-01-30] MEDS: LEVOTHYROXINE 75 MCG TAB PO SCH (08:58)
[2017-01-30] MEDS: ESCITALOPRAM OXALATE 10 MG TAB PO SCH (09:20)
[2017-01-30 09:24] LABS: ALANINE AMINOTRANSFERASE 163 IU/L (21-72); ALBUMIN 4.2 g/dL (3.5-5.0); ALKALINE PHOSPHATASE 56 IU/L (38-126); ASPARTATE AMINOTRANSFERASE 74 IU/L (17-59); BILIRUBIN,TOTAL 1.1 mg/dL (0.1-1.4); BILIRUBIN-CONJUGATED 0.4 mg/dL (0.0-0.5); BILIRUBIN-UNCONJUGATED 0.7 mg/dL (0.0-1.1); TOTAL PROTEIN 7.8 g/dL (6.3-8.2)
--- NOTE | 2017-01-30 18:04 | SOAPPROG ---
SOAP Progress Note Assessment/Plan: Assessment: Plan: 01/24/17 07:50 Ambivalent re: treatment and sobriety but able to make good decisions today. WIll CCM. 01/24/17 15:51 More focused on substance abuse treatment in light of possibility of going to [place]. Will [facility], monitor. 01/25/17 22:24 No change. CCM 01/29/17 17:40 Remains ambivalent. The presentation of the depressive sx's at this point in his hospitalization as he is preparing to d/c is suspect. I am willing to address it but question whether he will choose to stay on the medication. It is unusual that he would have such an exaggerated negative response to gabapentin so we will monitor closely. 01/30/17 18:05 Remains prostrate, ambivalent. His ongoing SI seems entirely based on secondary gain at this point. He admits to this to me today. Will proceed with d/c tomorrow to [facility] intake and possibly to detox. Subjective: Pt seen, discussed with staff. Reports horrific side effects from 10mg of Lexapro as predicted. Remains prostrate, ambivalent. Reports 9/10 SI to one staff member and denies to another. Using SI to prolong stay in hospital and then has claim attorney petition court for hearing for release of STC. I discussed this with him and he is motivated for d/c. States he will go to [facility] tomorrow and work with them toward sobriety. Sites GF as external motivator. Objective: Vital Signs Temp Pulse Resp BP Pulse Ox 36.5 C 62 12 102/57 L 92 01/30/17 06:00 01/30/17 06:00 01/30/17 06:00 01/30/17 06:00 01/30/17 06:00 Calm, coop. Affect is blunted, stable. Mood is "I don't know." TP linear. TC reveals no psychosis. Denies any active SI at this time. - Time Spent With Patient Time Spent With Patient: 15" - Pending Discharge Pending Discharge Within 24 Hours: Yes Pending Discharge Date: 01/31/17 Pending Discharge Time: 11:00 ICD10 Worksheet Patient Problems: Problems Problem Status Onset Suicidal ideation Acute Alcohol intoxication Acute Auditory hallucinations Acute Cellulitis Acute Schizophrenia Acute
[2017-01-30] MEDS: LORazepam 0.5 MG TAB PO PRN (20:07)
[2017-01-30] MEDS: OLANZapine 10 MG TAB PO SCH (20:51)
[2017-01-31] MEDS: levETIRAcetam 250 MG TAB PO SCH (07:23)
[2017-01-31] MEDS: LEVOTHYROXINE 75 MCG TAB PO SCH (07:23)
[2017-01-31] MEDS ORDERED: TESTOSTERONE IM 100 MG/ML SYRINGE IM SCH (09:00)
== END 2017-01-24 09:45 | disposition home or self-care (01) | DRG 885 ==
LOC: BBEH 01-20 16:45
PROVIDERS: ADMIT Psychiatry & Neurology Psychiatry; ATTEND Psychiatry & Neurology Psychiatry
DX: F20.89 Other schizophrenia (principal); F10.259 Alcohol dependence with alcohol-induced psychotic disorder, unspecified; I10 Essential (primary) hypertension; G40.909 Epilepsy, unspecified, not intractable, without status epilepticus; M81.0 Age-related osteoporosis without current pathological fracture; Z91.14 Patient's other noncompliance with medication regimen; Z59.0 Homelessness
CPT/HCPCS: 80305; 82607-90; G0480; J1071

== ENCOUNTER 2017-03-07 21:16 | Emergency (ER) | payer OTHER, MEDICAID ==
[2017-03-07 21:23] VITALS: TEMP 98.6
--- NOTE | 2017-03-07 22:06 | EDPHY ---
H & P Stated Complaint: MID BACK PAIN TO LOW BACK AFTER LIFTING DAUGHTERS TOYS HPI/ROS: HPI CHIEF COMPLAINT: Midline lumbar back pain HISTORY OF PRESENT ILLNESS: Patient very pleasant 41-year-old male, significant past medical history for schizophrenia, alcoholism, seizures, presents emergency room midline low lumbar back pain 1 focal area. States he was picking up a box of stuffed animals on Saturday bent over and felt discomfort in his lower back. He has no bowel bladder incontinence no saddle anesthesia, does tell me at times the pain radiates down his posterior gluteus bilaterally, but no genital pain or weakness. No leg weakness. Normal gait. He has not take anything for pain for this. No fever. No direct trauma. Past Medical History: Schizophrenia, seizure disorder, alcoholism Past Surgical History: no recent surgical history Social History: denies daily use of drugs alcohol tobacco products Family History: Noncontributory ROS REVIEW OF SYSTEMS: A comprehensive 10 point review of systems is otherwise negative aside from elements mentioned in the history of present illness. Exam Constitutional triage nursing summary reviewed, vital signs reviewed, awake/ alert. Eyes normal conjunctivae and sclera, EOMI, PERRLA. HENT normal inspection, atraumatic, moist mucus membranes, no epistaxis, neck supple/ no meningismus, no raccoon eyes. Respiratory clear to auscultation bilaterally, normal breath sounds, no respiratory distress, no wheezing. Cardiovascular rate normal, regular rhythm, no murmur, no edema, distal pulses normal. Gastrointestinal soft, non-tender, no rebound, no guarding, normal bowel sounds, no distension, no pulsatile mass. Genitourinary no CVA tenderness. Musculoskeletal tender palpation focal area lumbar around L4-L5 region, spine midline no step-offs or crepitus no signs of trauma, no leg weakness, normal reflexes, no saddle anesthesia, normal gait,, full range of motion, no calf swelling, no tenderness of extremities, no meningismus, good pulses, neurovascularly intact. Skin pink, warm, & dry, no rash, skin atraumatic. Neurologic awake, alert and oriented x 3, AAOx3, moves all 4 extremities equally, motor intact, sensory intact, CN II-XII intact, normal cerebellar, normal vision, normal speech. Psychiatric normal mood/affect. Heme/Lymph/Immune no lymphadenopathy. Differential Diagnosis: Includes but is not limited to in a particular order lumbar compression fracture, annular tear, nerve root compression, degenerative joint disease, no signs of acute cauda equina Medical Decision Making: Plan for this patient x-ray lumbar spine to rule out malalignment significant fracture. Ibuprofen dose. Ibuprofen for home. Ice his back. Rest. ED x-ray: lumbar spine no evidence of acute lumbar fracture or malalignment. Image interpreted by myself. Recommend ice, ibuprofen, rest. He understands. Return emergency room if there is worsening symptoms questions or concerns. Source: Patient - Personal History Current Tetanus/Diphtheria Vaccine: Yes Current Tetanus Diphtheria and Acellular Pertussis (TDAP): Yes Tetanus Vaccine Date: 2010 - Medical/Surgical History Hx Asthma: Yes Hx Chronic Respiratory Disease: No Hx Diabetes: Yes Hx Cardiac Disease: No Hx Renal Disease: No Hx Cirrhosis: No Hx Alcoholism: Yes Hx HIV/AIDS: No Hx Splenectomy or Spleen Trauma: No Other PMH: SCHIZO,BIPOLAR,HTN, OSTEOPOROSIS, CELLULITIS, ASTHMA, PRE-DIABETIC, HYPOTHYROIDISM, TIBIA AND FIBULA FX. - Social History Smoking Status: Former smoker Constitutional: Initial Vital Signs Temperature (C) 37.0 C 03/07/17 21:19 Heart Rate 78 03/07/17 21:19 Respiratory Rate 18 03/07/17 21:19 Blood Pressure 139/93 H 03/07/17 21:19 O2 Sat (%) 94 03/07/17 21:19 O2 Delivery Mode Room Air Allergies/Adverse Reactions: acetaminophen [From Vicodin] Allergy (Severe, Verified 03/07/17 21:23) Hives, BREATHING PROBLEMS fluoxetine HCl [From Prozac] Allergy (Severe, Verified 03/07/17 21:23) Hives, Breathing problems haloperidol [From Haldol] Allergy (Severe, Verified 03/07/17 21:23) Hives, Breathing Problems hydrocodone bitartrate [From Vicodin] Allergy (Severe, Verified 03/07/17 21:23) Hives, BREATHING PROBLEMS Home Medications: Medication Instructions Recorded Beclomethasone Qvar 80 [Qvar 80 2 puffs IH Q4 PRN #1 mdi 01/31/17 (*)] Ibuprofen [Motrin (*)] 800 mg PO Q8HRS PRN #0 tab 01/31/17 Levothyroxine [Synthroid 75 mcg 75 mcg PO DAILY@1000 #30 tab 01/31/17 (*)] OLANZapine [OLANZapine (*)] 30 mg PO DAILY@2300 #90 tab 01/31/17 Testosterone IM [Testosterone 200 mg IM Q14D #0 vial 01/31/17 100mg/ml IM inj (*)] levETIRAcetam [Keppra 250 mg (*)] 750 mg PO BID #180 tab 01/31/17 Ibuprofen [Motrin (*)] 800 mg PO Q6-8PRN #7 tab 03/07/17 Departure - Departure Disposition: Home, Routine, Self-Care Clinical Impression: Lumbar strain Qualifiers: Encounter type: initial encounter Qualified Code(s): S39.012A - Strain of muscle, fascia and tendon of lower back, initial encounter Condition: Good Instructions: Low Back Strain (ED) Additional Instructions: 1.Ice your back. 2. take ibuprofen for pain control. 3.Take it easy. No strenuous activity. Referrals: Delvis Gibson DO [Primary Care Provider] - As per Instructions Prescriptions: Ibuprofen [Motrin (*)] 800 mg PO Q6-8PRN #7 tab
[2017-03-07] MEDS ORDERED: IBUPROFEN 200 MG TAB PO ONE (22:26)
[2017-03-07] MEDS ORDERED: LIDOCAINE 5% 1 EA PATCH TD ONE (22:27)
[2017-03-07 22:36] VITALS: BP 130/84; PULSE 70; RESP 16; O2SAT 95
[2017-03-08] MEDS ORDERED: LIDOCAINE 5% 1 EA PATCH TD ONE (22:29)
== END 2017-03-07 22:35 | disposition home or self-care (01) ==
DX: S39.012A Strain of muscle, fascia and tendon of lower back, initial encounter (principal); J45.909 Unspecified asthma, uncomplicated; I10 Essential (primary) hypertension; Z87.891 Personal history of nicotine dependence; X50.0XXA Overexertion from strenuous movement or load, initial encounter; Y99.8 Other external cause status; Y93.89 Activity, other specified

== ENCOUNTER → 2018-03-05 | Outpatient (CLI) | payer OTHER, MEDICAID | LOC: CIMAGING 09:55 | PROVIDERS: ATTEND Internal Medicine Gastroenterology | DX: R16.0 Hepatomegaly, not elsewhere classified (principal); R74.0 Nonspecific elevation of levels of transaminase and lactic acid dehydrogenase [LDH] | CPT/HCPCS: 76705-PO ==

== ENCOUNTER 2018-11-20 13:00 | Emergency (ER) | payer OTHER, MEDICAID ==
[2018-11-20 13:14] VITALS: BP 127/72
[2018-11-20] MEDS ORDERED: IBUPROFEN 600 MG TAB PO ONE (13:19)
--- NOTE | 2018-11-20 14:07 | EDPHY ---
H & P Time Seen by Provider: 11/20/18 13:08 HPI/ROS: This patient describes having abrupt onset of medial ankle pain when he stood up in the waiting room of the [facility] office [place] the [place]. He explains that he brought his children in for cold symptoms and when he stood up abruptly had sharp in achy medial ankle pain just posterior to the medial malleolus 5/10 intensity worse with weight-bearing. He had 1 prior similar episode a year ago that resolved after a day or 2 without seeking medical attention. He reports that he had a minimal discomfort to that ankle over the past couple days prior to today's worsening. He denies any acute trauma. He notes no exacerbating factors other than worsening with weight-bearing. ROS: Constitutional: No fevers Musculoskeletal: No other musculoskeletal complaints Cardiovascular: No leg swelling. No heart palpitations or lightheadedness Pulmonary: No shortness of breath Neuro: No numbness tingling focal weakness 7 point review of symptoms is performed and otherwise negative with exception of pertinent positives and negatives listed in HPI and ROS Past Medical/Surgical History: Left tibial plateau fracture 1 year ago requiring ORIF with ankle sprain at that time as well. Smoking Status: Former smoker Physical Exam: Physical Exam Vital signs are normal. General: No acute distress HEENT: Atraumatic. Eyes: Pupils equal and react to light. Extraocular motions are intact. Lungs: No respiratory distress. Cardiac: Brisk capillary refill is intact throughout. Pulses are 2+ and symmetric in the affected extremity. Skin: No rash or pallor. Extremities: Atraumatic normal except for left ankle Left ankle: Patient has left ankle medial tenderness just superior and posterior to the medial malleolus without Achilles tenderness. No lateral ankle tenderness. No foot swelling or tenderness. No posterior calf swelling or tenderness. Neuro: Alert and oriented x3 with no sensorimotor deficits in the affected extremity. Initial differential diagnosis: Ankle strain, ankle sprain, potential medication seeking behavior Constitutional: Initial Vital Signs Temperature (C) 37.0 C 11/20/18 13:10 Heart Rate 83 11/20/18 13:10 Respiratory Rate 16 11/20/18 13:10 Blood Pressure 127/72 H 11/20/18 13:10 O2 Sat (%) 95 11/20/18 13:10 O2 Delivery Mode Room Air Allergies/Adverse Reactions: acetaminophen [From Vicodin] Allergy (Severe, Verified 11/20/18 13:08) Hives, BREATHING PROBLEMS fluoxetine HCl [From Prozac] Allergy (Severe, Verified 11/20/18 13:08) Hives, Breathing problems haloperidol [From Haldol] Allergy (Severe, Verified 11/20/18 13:08) Hives, Breathing Problems hydrocodone bitartrate [From Vicodin] Allergy (Severe, Verified 11/20/18 13:08) Hives, BREATHING PROBLEMS Home Medications: Medication Instructions Recorded Beclomethasone Qvar 80 [Qvar 80] 2 puffs IH Q4 PRN #1 mdi 01/31/17 Ibuprofen [Motrin (*)] 800 mg PO Q8HRS PRN #0 tab 01/31/17 Levothyroxine [Synthroid 75 mcg 75 mcg PO DAILY@1000 #30 tab 01/31/17 (*)] OLANZapine [OLANZapine (*)] 30 mg PO DAILY@2300 #90 tab 01/31/17 Testosterone IM [Testosterone 200 mg IM Q14D #0 vial 01/31/17 100mg/ml IM inj (*)] levETIRAcetam [Keppra 250 mg (*)] 750 mg PO BID #180 tab 01/31/17 Zyprexa 11/20/18 MDM/Departure - MDM Diagnostics: Three-view Ankle x-ray: Normal by my interpretation Imaging Results: Imaging Impressions Ankle X-Ray 11/20/18 13:19 Impression: Negative. No explanation for pain. Imaging: I viewed and interpreted images myself Medications Given: Discontinued Medications Ibuprofen (Motrin) 600 mg PO EDNOW ONE Stop: 11/20/18 13:20 Last Admin: 11/20/18 13:28 Dose: 600 mg ED Course/Re-evaluation: The patient left after x-ray without being seen again in the room. - Depart Disposition: Home, Routine, Self-Care Clinical Impression: Ankle pain, left Qualifiers: Chronicity: acute Qualified Code(s): M25.572 - Pain in left ankle and joints of left foot Condition: Good Instructions: Ankle Sprain (ED) Additional Instructions: Diagnosis: Ankle pain Ibuprofen, Tylenol ice, elevate Follow up with orthopedics for any ongoing symptoms. Referrals: Delvis Gibson DO [Primary Care Provider] - As per Instructions
== END 2018-11-20 13:55 | disposition home or self-care (01) ==
LOC: CED 13:00
DX: M25.572 Pain in left ankle and joints of left foot (principal); Z87.891 Personal history of nicotine dependence
CPT/HCPCS: 73610-PO